=== PATIENT | male | born 1955 | race Caucasian/White ===

== ENCOUNTER 2017-12-19 10:35 | Day surgery (SDC) | payer BC ==
[2017-12-18 16:45] VITALS: BMI 28.1
[2017-12-19] MEDS ORDERED: Midazolam HCl 2 mg/2 ml Vial ONE ×2 (12:19→12:32)
[2017-12-19] MEDS ORDERED: Fentanyl 100 MCG/2 ML VIAL ONE ×3 (12:19→12:32)
--- NOTE | 2017-12-19 13:34 | MRI ---
MRI OF THE CERVICAL SPINE WITHOUT CONTRAST: Date: 12/19/17 COMPARISON: None. HISTORY: Left shoulder pain for 9 months. TECHNIQUE: Multiplanar, multisequence MR images were obtained of the cervical spine without contrast. FINDINGS: Generalized disc desiccation seen. Vertebral bodies demonstrate normal height and alignment without f racture or subluxation. The prevertebral and paraspinal soft tissues are unremarkable. The visualized cord demonstrates normal signal throughout. The craniocervical junction is unremarkable. Anterior os teophytes are seen in the mid to lower cervical spine. C2-C3: Unremarkable. C3-4: Unremarkable. C4-5: A moderate disc osteophyte complex is seen. Mild bilateral posterior facet arthrosis. Moderate centra l canal stenosis. Severe left and moderate right neural foraminal stenosis. C5-6: A moderate disc osteophyte complex is seen. Mild bilateral posterior facet arthrosis. Moderate to sev ere central canal stenosis. Moderate to severe bilateral neural foraminal stenosis. C6-7: A small disc osteophyte complex is seen. No posterior facet arthrosis. Moderate central canal stenosi s. Moderate to severe left and mild right neural foraminal stenosis. C7-T1: A small disc osteophyte complex is seen. No posterior facet arthrosis. Mild central canal stenosis. M ild bilateral neural foraminal stenosis. IMPRESSION: Degenerative changes of the cervical spine as above. POS: [facility]
[2017-12-19] MEDS ORDERED: HYDROcodone/Acetaminophen 5/325 mg Tablet ONE (14:09)
== END 2017-12-19 14:50 | disposition home health service (06) ==
LOC: SDC/OP 10:35
PROVIDERS: ATTEND Surgery
DX: M50.30 Other cervical disc degeneration, unspecified cervical region (principal); M48.02 Spinal stenosis, cervical region
CPT/HCPCS: 72141; J2250; J3010

== ENCOUNTER 2019-03-30 05:37 | Day surgery (SDC) | payer OTHER, MEDICARE ==
[2019-03-29 11:09] VITALS: BMI 28.8
[2019-03-30] MEDS ORDERED: Thrombin 5000 UNITS/5 ML VIAL ONE (06:34)
[2019-03-30] MEDS ORDERED: Sodium Chloride 0.9% 0 ML ONE (06:34)
[2019-03-30 06:44] LABS: #Basophils 0.1 thou/uL (0.0-0.2); #Eosinphils 0.5 thou/uL (0.0-0.7); #Lymphocytes 2.5 thou/uL (1.20-3.40); %Basophils 0.7 % (0.0-1.0); %Eosinophils 4.9 % (0.0-10.0); %Lymphocytes 22.7 % (21.0-51.0); %Monocytes 8.9 % (0.0-10.0); %Neutrophils 62.8 % (42.0-75.0); Hemoglobin 14.7 g/dL (14.0-18.0); Mean Corpuscular HGB CONC 34.1 g/dL (32.0-36.0); Mean Corpuscular Hemoglobin 31.7 pg (27.0-31.0); Mean Corpuscular Volume 92.8 fL (78.0-98.0); Mean Platelet Volume 7.9 fL (7.4-10.4); Platelet Count 146 thou/uL (130-400); RBC Distribution Width 11.5 % (11.5-14.5); Red Blood Cell (RBC) Count 4.64 mill/uL (4.70-6.10); White Blood Cell (WBC) Count 11.2 thou/uL (4.8-10.8)
[2019-03-30 06:49] LABS: PTT 32.5 SEC (22.9-36.1); Prothrombin Time 13.1 SEC (12.0-14.7)
[2019-03-30 07:03] LABS: Anion Gap 10 mmol/L (10-20); BUN (Urea Nitrogen) 16 mg/dL (8.4-25.7); Calc. Creatinine Clearance 108 mL/min (70-130); Calcium 8.4 mg/dL (7.8-10.44); Carbon Dioxide 26 mmol/L (23-31); Chloride 103 mmol/L (98-107); Estimated GFR-MDRD Greater than 90; Glucose 90 mg/dL (80-115); Potassium 4.1 mmol/L (3.5-5.1); Sodium 135 mmol/L (136-145)
[2019-03-30] MEDS ORDERED: Fentanyl 100 MCG/2 ML VIAL ONE ×2 (07:23→08:43)
[2019-03-30] MEDS ORDERED: PACU-Morphine 4MG/ML VIAL SLOW IVP PRN (10:15)
[2019-03-30] MEDS ORDERED: Morphine Sulfate 2 MG/ML SYRINGE SLOW IVP PRN (10:15)
[2019-03-30] MEDS ORDERED: Promethazine HCl 25 MG/ML VIAL SLOW IVP PRN (10:15)
[2019-03-30] MEDS ORDERED: Ondansetron HCl/PF 4 MG/2 ML Vial IVP PRN (10:15)
[2019-03-30] MEDS ORDERED: HYDROmorphone 2 MG/ML VIAL SLOW IVP PRN (10:15)
[2019-03-30] MEDS ORDERED: Promethazine HCl 25 MG/ML VIAL IM PRN (10:15)
[2019-03-30] MEDS ORDERED: Mag-Al 1200 mg/1200 mg/30 ML UDCUP PO PRN (11:00)
[2019-03-30] MEDS ORDERED: tiZANidine HCl 4 MG TAB PO PRN (11:00)
[2019-03-30] MEDS ORDERED: Acetaminophen 325 MG TAB PO PRN (11:00)
[2019-03-30] MEDS ORDERED: Fleet Enema 133 ML BOT PR PRN (11:00)
[2019-03-30] MEDS ORDERED: traMADol HCl 50 MG TAB PO PRN (11:00)
[2019-03-30] MEDS ORDERED: Milk Of Magnesia 30 ML UDCUP PO PRN (11:00)
[2019-03-30] MEDS ORDERED: HYDROcodone/Acetaminophen 7.5/325 mg Tablet PO PRN (11:00)
[2019-03-30] MEDS ORDERED: Morphine 2 MG/ML SYRINGE SLOW IVP PRN (11:00)
[2019-03-30] MEDS ORDERED: Ondansetron PF 4 MG/2 ML Vial IVP PRN (11:00)
[2019-03-30] MEDS ORDERED: Acetaminophen/Codeine 30-300mg Tablet PO PRN (11:00)
[2019-03-30] MEDS ORDERED: Bisacodyl 10 MG SUPP PR PRN (11:00)
[2019-03-30] MEDS ORDERED: Sodium Chloride 0.9% 10 ML ONE (13:38)
[2019-03-30] MEDS ORDERED: Sodium Chloride For Inhalation 0.9% 3 ML NEB ONE (13:38)
--- NOTE | 2019-03-30 14:10 | OP ---
DATE OF PROCEDURE: 03/30/2019 INSTRUCTIONAL SYSTEMS SPECIALIST: Mario Florez PA-C LOCATION: OR 12. PRE-PROCEDURE DIAGNOSES: Multilevel cervical stenosis, disk extrusion with neck and arm pain. POSTPROCEDURE DIAGNOSES: Multilevel cervical stenosis, disk extrusion with neck and arm pain. PROCEDURES: 1. Anterior C4-C5, C5-C6, C6-C7 with decompression of spinal cord nerve roots at each of those levels. 2. Placement of interbody spacer at C4-C5, C5-C6, C6-C7 for presybeterian of cervical alignment and structural support and arthrodesis. 3. Anterior cervical plate and screw fixation, C4, C5, C6, and C7. 4. Arthrodesis, C4, C5, C6, and C7. 5. Use of operative microscope for microdissection. DESCRIPTION OF PROCEDURE: After informed consent was obtained from the patient, the patient was brought to the OR. Proper patient, pause, and identification were carried out. He was placed under excellent endotracheal anesthesia and positioned supine on the OR table. We then shannon out right anterior oblique frank, which allowed for pressure at C4 through C7. Spinous region was sterilely cleansed, prepared, and draped. Proper patient, pause, and identification were carried out. The wound was then opened with combination of sharp, monopolar, and blunt dissection, and we proceeded lateral to the tracheoesophageal bundle and larynx and pharynx and medial to the right carotid sheath. We identified the prevertebral layer of deep cervical fascia and the C4-C7 segments. Localization film confirmed area of interest. We then performed anterior C4-C5 distraction and C4-C5 diskectomy with the use of the microscope, decompression of spinal cord and bilateral C5 nerve roots. We prepared the endplates. Space was packed with graft and placed at C4-C5 for strut support, arthrodesis. We then did the same surgery at C5, C6, C6, C7 with decompression of spinal cord and C6 nerve roots and spinal cord and C7 nerve roots respectively and placement of spacers. We then removed the microscope. Anterior cervical plate screw fixation of C4, C5, C6, C7 occurred. Copious irrigation was occurred throughout and maximized hemostasis. The wound was closed in anatomic layers following placement . Job ID: [id number]
[2019-03-30] MEDS: Sodium Chloride 0.9% 1,000 ML IV SCH (14:43)
[2019-03-30] MEDS: CEFAZOLIN 2 GM in Premix Bag 1 BAG IVPB SCH ×2 (15:19→23:22)
[2019-03-31] MEDS: Sodium Chloride 0.9% 1,000 ML IV SCH (01:52)
[2019-03-31] MEDS ORDERED: hydrALAZINE 20 MG/ML VIAL SLOW IVP PRN (07:50)
[2019-03-31 08:27] VITALS: TEMP 98.1
[2019-03-31] MEDS: CEFAZOLIN 2 GM in Premix Bag 1 BAG IVPB SCH (08:51)
[2019-03-31 08:55] VITALS: BP 150/75
[2019-03-31] MEDS ORDERED: Lisinopril 2.5 MG TAB PO SCH (09:00)
--- NOTE | 2019-03-31 10:30 | PRG ---
DATE OF SERVICE: 03/31/2019 Mr. Cano is postoperative day #1 from [facility]CD[facility]. He is doing very well with improvement in his arm pain. Strength is good throughout. His drain output has been minimal and this will be removed. We went over do's and don'ts in the postoperative period. His wound is healing well. He will be dismissed. Job ID: [id number]
[2019-03-31] MEDS ORDERED: FLU VACC TS2019-20(65YR UP)/PF 180 MCG/0.5 ML SYRINGE IM ONE (15:15)
[2019-03-31] MEDS ORDERED: Prevnar 13-Val Conj/PF 0.5 ML SYRINGE IM ONE (15:15)
--- NOTE | 2019-03-31 19:53 | EKG ---
Test Reason : PREOP Blood Pressure : / mmHG Vent. Rate : 070 BPM Atrial Rate : 070 BPM P-R Int : 134 ms QRS Dur : 082 ms QT Int : 416 ms P-R-T Axes : 035 044 027 degrees QTc Int : 449 ms Normal sinus rhythm Normal ECG No previous ECGs available Confirmed by PRIYANK FREGOSO, DR. Gimenez ([id number]) on 03/31/2019 7:53:18 PM Referred By: JULIAN Confirmed By:DR. Pernell YOST MD
== END 2019-03-31 11:01 | disposition home or self-care (01) ==
LOC: SDC 05:37 → SURG A 10:59 → SDC 03-31 11:01
PROVIDERS: ATTEND Surgery
PROC: 0RT30ZZ Resection of Cervical Vertebral Disc, Open Approach (ICD-10-PCS; principal; 2019-03-30)
PROC: 0RG20A0 Fusion of 2 or more Cervical Vertebral Joints with Interbody Fusion Device, Anterior Approach, Anterior Column, Open Approach (ICD-10-PCS; principal; 2019-03-30)
DX: M50.121 Cervical disc disorder at C4-C5 level with radiculopathy (principal); M48.02 Spinal stenosis, cervical region; F17.210 Nicotine dependence, cigarettes, uncomplicated
CPT/HCPCS: 36415; 76000; 80048; 85025; 85610; 85730; 93005; 93010; C1713; C1776; J0131; J0690; J3010; J3490

== ENCOUNTER 2019-06-02 08:30 | Outpatient (CLI) | payer OTHER ==
--- NOTE | 2019-06-02 17:18 | RAD ---
CERVICAL SPINE: 06/02/19 Four views. HISTORY: Cervical herniated nucleus pulposus. Postop follow-up. Postop changes are noted. Anterior plate and screws transfix C4, C5, C6 and C7. Interbody disc implan ts are seen at these levels. Mild wedging of the C4, C5 and C6 vertebrae. Posterior spondylosis at these levels is noted. IMPRESSION: Postoperative and degenerative changes of cervical spine as described. POS: [facility]
== END 2019-06-02 08:31 | disposition home or self-care (01) ==
LOC: TBSIIMAG 08:30
PROVIDERS: ATTEND Surgery
DX: M50.20 Other cervical disc displacement, unspecified cervical region (principal); M47.812 Spondylosis without myelopathy or radiculopathy, cervical region; Z98.890 Other specified postprocedural states
CPT/HCPCS: 72040

== ENCOUNTER 2019-09-21 10:34 | Outpatient (CLI) | payer OTHER, MEDICARE ==
--- NOTE | 2019-09-21 11:16 | RAD ---
CERVICAL SPINE 4 VIEWS: Date: 09/21/2019 HISTORY: Neck pain. Postop follow-up. Comparison made to films of 06/02/2019. FINDINGS: Anterior fusion procedure changes again noted. Anterior plate and screws again noted transfixing C4, C5, C6, and C7. Interbody implants at these levels are again noted and are unchanged in position. Ant erior wedging of these vertebral bodies appear stable with anterior osteophytes. Position of the ante rior plate is unchanged. Slight kyphotic curvature of the cervical spine is unchanged in appearance. Slight anterolisthesis at C3-4 is unchanged. IMPRESSION: Postoperative and degenerative changes of cervical spine appear stable. POS: [facility]
== END 2019-09-21 10:35 | disposition home or self-care (01) ==
LOC: TBSIIMAG 10:34
PROVIDERS: ATTEND Surgery
DX: Z47.89 Encounter for other orthopedic aftercare (principal); M47.812 Spondylosis without myelopathy or radiculopathy, cervical region; Z98.1 Arthrodesis status
CPT/HCPCS: 72040